=== PATIENT | male | born 1960 | race African-American/Black ===

== ENCOUNTER 2021-06-02 11:03 | Inpatient (IN) | payer MEDICAID ==
[~2021-06-02] VITALS: Ht 205.7 cm; Wt 169.6 kg
[~2021-06-02 11:03] MED LIST: DOCU-138 MT; FAMO-135 PO; HYDR-4001 MT
[2021-06-02] MEDS ORDERED: HYDROCODONE/ACETAMINOPHEN 10/325MG TABLET PO ONE (11:45)
[2021-06-02 12:27] LABS: BASOPHILS % 0.6 % (0.0-2.0); EOSINOPHILS % 4.7 % (0.0-5.0); HEMATOCRIT. 38.7 % (42.0-52.0); HEMOGLOBIN. 13.2 g/dL (14.0-18.0); LYMPHOCYTES % 16.9 % (20.0-50.0); MEAN PLATELET VOLUME 7.8 fl (7.4-10.4); MONOCYTES % 9.6 % (2.0-8.0); NEUTROPHILS % 68.2 % (40.0-76.0); PLATELET 336 x1000/uL (130-400); RED BLOOD CELL COUNT 4.25 mill/uL (4.7-6.1); RED CELL DISTRIBUTION WIDTH 14.7 % (11.6-14.6)
[2021-06-02 12:33] LABS: CHLORIDE 110 mEq/L (98-107)
[2021-06-02] MEDS ORDERED: ONDANSETRON HCL 4MG/2ML INJ IV ONE (15:00)
[2021-06-02] MEDS ORDERED: MORPHINE SULFATE 4 MG/ML CPJ (NOT FOR IM USE) IV ONE (15:00)
[2021-06-02] MEDS ORDERED: MAGNESIUM/ALUMINUM HYDROXIDE/SIMETHICONE 30ML UDC PO PRN (16:00)
[2021-06-02] MEDS ORDERED: ONDANSETRON HCL 4MG/2ML INJ IV PRN (16:00)
[2021-06-02] MEDS ORDERED: NA PHOS,M-B/NA PHOS,DI-BA ENEMA 118ML PR PRN (16:00)
[2021-06-02] MEDS ORDERED: HYDROCODONE/ACETAMINOPHEN 5/325MG TABLET PO PRN (16:00)
[2021-06-02] MEDS ORDERED: GUAIFENESIN 200MG/10ML SUGAR FREE UDC PO PRN (16:00)
[2021-06-02] MEDS ORDERED: CLONIDINE 0.1MG TABLET PO PRN (16:00)
[2021-06-02] MEDS ORDERED: ACETAMINOPHEN 325MG TABLET PO PRN (16:00)
[2021-06-02] MEDS ORDERED: HYDRALAZINE 20MG/ML VIAL IV PRN (16:00)
[2021-06-02] MEDS ORDERED: IPRATROPIUM/ALBUTEROL 0.5-3(2.5)MG/3ML NEB NEB PRN (16:00)
[2021-06-02] MEDS ORDERED: ACETAMINOPHEN 650MG SUPP PR PRN (16:00)
[2021-06-02] MEDS ORDERED: DIPHENHYDRAMINE 50MG/ML VIAL IV PRN (16:00)
[2021-06-02] MEDS ORDERED: DOCUSATE SODIUM 100MG CAPSULE PO PRN (16:00)
[2021-06-02] MEDS ORDERED: LORAZEPAM 0.5MG TABLET PO PRN (16:00)
[2021-06-02] MEDS ORDERED: NALOXONE HCL 0.4MG/ML VIAL IV PRN (16:15)
[2021-06-02] MEDS: DEXT 5%/0.45% NACL 1000ML 1,000 ML IV SCH (16:23)
[2021-06-02] MEDS: PANTOPRAZOLE SODIUM 40 MG/VIAL IV SCH (17:00)
[2021-06-02] MEDS ORDERED: BISACODYL 5MG TABLET PO NR (18:30)
[2021-06-02 19:42] LABS: HEMATOCRIT 38.2 % (42.0-52.0); HEMOGLOBIN 12.9 g/dL (14.0-18.0)
[2021-06-02] MEDS: METOCLOPRAMIDE HCL 10MG/2ML VIAL IV SCH ×2 (19:53→23:55)
[2021-06-02] MEDS: MORPHINE SULFATE 2 MG/ML CPJ (NOT FOR IM USE) IV PRN ×2 (20:09→23:56)
[2021-06-02 20:47] VITALS: BP 140/90
[2021-06-02 21:40] VITALS: BP 140/90
[2021-06-02] MEDS ORDERED: OXYC-105 MT (22:16)
[2021-06-02] MEDS ORDERED: METH500T6 PO (22:17)
[2021-06-02] MEDS ORDERED: IBUP-2029 PO (22:17)
[2021-06-02] MEDS: SORBITOL 70% SOLN 30ML PO SCH (23:56)
[2021-06-03] VITALS: BP 133/81
[2021-06-03 00:16] LABS: CREATINE KINASE 149 IU/L (39-308)
[2021-06-03 00:17] LABS: CREATINE KINASE MB FRACTION 3.7 ng/mL (0.5-3.6)
[2021-06-03 00:19] LABS: HEMATOCRIT 35.3 % (42.0-52.0); HEMOGLOBIN 11.9 g/dL (14.0-18.0)
[2021-06-03 04:00] VITALS: BP 122/68
[2021-06-03] MEDS: DEXT 5%/0.45% NACL 1000ML 1,000 ML IV SCH ×3 (04:48→21:45)
[2021-06-03] MEDS: SORBITOL 70% SOLN 30ML PO SCH ×4 (06:00→17:35)
[2021-06-03] MEDS: METOCLOPRAMIDE HCL 10MG/2ML VIAL IV SCH ×3 (06:09→17:35)
[2021-06-03 06:33] LABS: BASOPHILS % 0.3 % (0.0-2.0); EOSINOPHILS % 4.7 % (0.0-5.0); HEMATOCRIT. 33.4 % (42.0-52.0); HEMOGLOBIN. 11.3 g/dL (14.0-18.0); LYMPHOCYTES % 26.3 % (20.0-50.0); MEAN CORPUSCULAR HEMOGLOBIN 31.2 pg (28.0-32.0); MEAN CORPUSCULAR VOLUME 91.7 fL (80.0-94.0); MEAN PLATELET VOLUME 7.8 fl (7.4-10.4); MONOCYTES % 11.6 % (2.0-8.0); NEUTROPHILS % 57.1 % (40.0-76.0); PLATELET 290 x1000/uL (130-400); RED BLOOD CELL COUNT 3.64 mill/uL (4.7-6.1); RED CELL DISTRIBUTION WIDTH 14.6 % (11.6-14.6)
[2021-06-03 06:40] LABS: CHLORIDE 107 mEq/L (98-107)
[2021-06-03 06:53] LABS: PHOSPHORUS 4.4 mg/dL (2.5-4.9)
[2021-06-03 06:54] LABS: LDL CHOLESTEROL 60 mg/dL (5-100)
[2021-06-03 06:55] LABS: CREATINE KINASE 125 IU/L (39-308); CREATINE KINASE MB FRACTION 2.7 ng/mL (0.5-3.6)
[2021-06-03 06:56] LABS: T4 FREE 1.02 ng/dL (0.76-1.46)
[2021-06-03 06:57] LABS: HDL CHOLESTEROL 63 mg/dL (40-59)
[2021-06-03 08:00] VITALS: BP 124/79
[2021-06-03] MEDS: MORPHINE SULFATE 2 MG/ML CPJ (NOT FOR IM USE) IV PRN ×2 (08:42→17:36)
[2021-06-03 08:55] LABS: HEMATOCRIT 34.9 % (42.0-52.0); HEMOGLOBIN 11.9 g/dL (14.0-18.0)
[2021-06-03] MEDS: PANTOPRAZOLE SODIUM 40 MG/VIAL IV SCH ×2 (09:37→17:36)
[2021-06-03] MEDS ORDERED: POTASSIUM CHLORIDE 20MEQ TABLET SR PO NR (11:15)
[2021-06-03 12:00] VITALS: BP 141/87
[2021-06-03 16:00] VITALS: BP 155/96
[2021-06-03 16:41] LABS: HEMATOCRIT 37.3 % (42.0-52.0); HEMOGLOBIN 12.4 g/dL (14.0-18.0)
[2021-06-03 16:49] LABS: PROTHROMBIN TIME 11.1 sec (9.6-11.0)
[2021-06-03] MEDS ORDERED: POLYETHYLENE GLYCOL-ELECTROLYTE 4000ML PO NR (17:30)
[2021-06-03 20:00] VITALS: BP 117/67
[2021-06-03 23:12] LABS: HEMATOCRIT 34.9 % (42.0-52.0); HEMOGLOBIN 11.7 g/dL (14.0-18.0)
[2021-06-04] VITALS (7 sets, daily range): BP systolic 128–173; BP diastolic 72–101
[2021-06-04] MEDS: METOCLOPRAMIDE HCL 10MG/2ML VIAL IV SCH ×5 (00:04→23:19)
[2021-06-04] MEDS: SORBITOL 70% SOLN 30ML PO SCH ×5 (00:05→23:19)
[2021-06-04] MEDS: PANTOPRAZOLE SODIUM 40 MG/VIAL IV SCH ×2 (09:50→18:37)
[2021-06-04] MEDS: MORPHINE SULFATE 2 MG/ML CPJ (NOT FOR IM USE) IV PRN ×2 (12:59→21:29)
[2021-06-04 16:25] LABS: BASOPHILS % 0.5 % (0.0-2.0); EOSINOPHILS % 5.4 % (0.0-5.0); HEMATOCRIT. 36.5 % (42.0-52.0); HEMOGLOBIN. 12.3 g/dL (14.0-18.0); LYMPHOCYTES % 22.9 % (20.0-50.0); MEAN CORPUSCULAR HEMOGLOBIN 31.1 pg (28.0-32.0); MEAN CORPUSCULAR VOLUME 92.1 fL (80.0-94.0); MONOCYTES % 9.8 % (2.0-8.0); NEUTROPHILS % 61.4 % (40.0-76.0); PLATELET 330 x1000/uL (130-400); RED BLOOD CELL COUNT 3.96 mill/uL (4.7-6.1); RED CELL DISTRIBUTION WIDTH 14.6 % (11.6-14.6)
[2021-06-04 16:57] LABS: CHLORIDE 110 mEq/L (98-107)
[2021-06-04 17:03] LABS: PHOSPHORUS 2.9 mg/dL (2.5-4.9)
[2021-06-04] MEDS: DEXT 5%/0.45% NACL 1000ML 1,000 ML IV SCH (21:44)
[2021-06-05] VITALS: BP 177/103
[2021-06-05 04:00] VITALS: BP 156/93
[2021-06-05] MEDS: SORBITOL 70% SOLN 30ML PO SCH (06:16)
[2021-06-05] MEDS: METOCLOPRAMIDE HCL 10MG/2ML VIAL IV SCH (06:16)
[2021-06-05] MEDS: DEXT 5%/0.45% NACL 1000ML 1,000 ML IV SCH ×2 (06:17→14:00)
[2021-06-05 08:00] VITALS: BP 159/85
[2021-06-05] MEDS: PANTOPRAZOLE SODIUM 40 MG/VIAL IV SCH ×2 (08:49→17:00)
[2021-06-05] MEDS: MORPHINE SULFATE 2 MG/ML CPJ (NOT FOR IM USE) IV PRN ×3 (08:50→22:18)
[2021-06-05 09:57] LABS: BASOPHILS % 0.4 % (0.0-2.0); EOSINOPHILS % 7.3 % (0.0-5.0); HEMATOCRIT. 36.3 % (42.0-52.0); HEMOGLOBIN. 12.4 g/dL (14.0-18.0); LYMPHOCYTES % 25.2 % (20.0-50.0); MEAN CORPUSCULAR HEMOGLOBIN 30.9 pg (28.0-32.0); MEAN CORPUSCULAR VOLUME 90.8 fL (80.0-94.0); MEAN PLATELET VOLUME 7.8 fl (7.4-10.4); MONOCYTES % 9.9 % (2.0-8.0); NEUTROPHILS % 57.2 % (40.0-76.0); PLATELET 330 x1000/uL (130-400); RED CELL DISTRIBUTION WIDTH 14.5 % (11.6-14.6)
[2021-06-05 10:07] LABS: INR 1.1; PROTHROMBIN TIME 11.3 sec (9.6-11.0)
[2021-06-05 10:13] LABS: CHLORIDE 106 mEq/L (98-107)
[2021-06-05 10:19] LABS: PHOSPHORUS 3.3 mg/dL (2.5-4.9)
[2021-06-05 12:00] VITALS: BP 152/87
[2021-06-05] MEDS ORDERED: POTASSIUM CHLORIDE INJ 40 MEQ in DEXT 5% WATER 250 ML IV ONE (12:00)
[2021-06-05] MEDS ORDERED: KCL 20MEQ/100ML PREMIX 100 ML IV NR (12:15)
[2021-06-05] MEDS ORDERED: FENTANYL CITRATE/PF 50MCG/ML 2ML VIAL ONE ×2 (12:31→12:53)
[2021-06-05] MEDS ORDERED: MIDAZOLAM HCL 5 MG/5 ML VIAL ONE ×2 (12:31→13:36)
[2021-06-05] MEDS ORDERED: FENTANYL CITRATE/PF 50MCG/ML 2ML VIAL IV PRN (12:31)
[2021-06-05] MEDS ORDERED: MIDAZOLAM HCL 5 MG/5 ML VIAL IV PRN (12:31)
[2021-06-05] MEDS ORDERED: DIAZEPAM 5 MG/ML 2ML CPJ ONE ×3 (12:32→13:19)
[2021-06-05] MEDS ORDERED: DIAZEPAM 5 MG/ML 2ML CPJ IV PRN (12:32)
[2021-06-05 16:00] VITALS: BP 150/86
[2021-06-05] MEDS ORDERED: POTASSIUM CHLORIDE 20MEQ TABLET SR PO NR (17:00)
[2021-06-05 20:00] VITALS: BP 145/86
[2021-06-06] VITALS: BP 162/99
[2021-06-06 06:23] LABS: BASOPHILS % 0.6 % (0.0-2.0); EOSINOPHILS % 6.5 % (0.0-5.0); HEMATOCRIT. 37.2 % (42.0-52.0); HEMOGLOBIN. 12.4 g/dL (14.0-18.0); MEAN CORPUSCULAR HEMOGLOBIN 30.6 pg (28.0-32.0); MEAN CORPUSCULAR VOLUME 91.5 fL (80.0-94.0); MEAN PLATELET VOLUME 7.9 fl (7.4-10.4); MONOCYTES % 9.1 % (2.0-8.0); NEUTROPHILS % 57.8 % (40.0-76.0); PLATELET 328 x1000/uL (130-400); RED BLOOD CELL COUNT 4.07 mill/uL (4.7-6.1); RED CELL DISTRIBUTION WIDTH 14.5 % (11.6-14.6)
[2021-06-06 06:57] LABS: CHLORIDE 106 mEq/L (98-107)
[2021-06-06 08:00] VITALS: BP 151/92
[2021-06-06] MEDS ORDERED: POTASSIUM CHLORIDE 20MEQ TABLET SR PO SCH (08:45)
[2021-06-06] MEDS: PANTOPRAZOLE SODIUM 40 MG/VIAL IV SCH ×3 (08:53→17:27)
[2021-06-06] MEDS: MORPHINE SULFATE 2 MG/ML CPJ (NOT FOR IM USE) IV PRN ×2 (08:54→09:32)
[2021-06-06] MEDS: DEXT 5%/0.45% NACL 1000ML 1,000 ML IV SCH ×5 (10:00→22:27)
[2021-06-06 12:00] VITALS: BP 130/79
[2021-06-06 16:00] VITALS: BP 137/91
[2021-06-06] MEDS: HYDROCODONE/ACETAMINOPHEN 10/325MG TABLET PO PRN (17:30)
[2021-06-06 20:00] VITALS: BP 147/91
[2021-06-07] MEDS ORDERED: POTASSIUM CHLORIDE 20MEQ TABLET SR PO NR (07:30)
[2021-06-07 08:00] VITALS: BP 141/76
[2021-06-07] MEDS: HYDROCODONE/ACETAMINOPHEN 10/325MG TABLET PO PRN (08:56)
[2021-06-07] MEDS: PANTOPRAZOLE SODIUM 40 MG/VIAL IV SCH (09:00)
[2021-06-07 12:00] VITALS: BP 141/76
[2021-06-07] MEDS ORDERED: [UNRECOGNIZED DRUG - OTHER] RC (14:04)
[2021-06-07] MEDS ORDERED: HYDR-4009 MT (14:04)
[2021-06-07 14:58] VITALS: BP 131/77
[2021-06-07 16:00] VITALS: BP 160/100
== END 2021-06-07 16:05 | disposition home or self-care (01) | DRG 240 ==
LOC: ER 11:03 → 8WST 14:56 → EDBEDREQSVC 15:35 → EDBEDREQ 15:35 → ENRESERV 18:03
PROVIDERS: ADMIT Internal Medicine; ATTEND Internal Medicine
PROC: 0DBN8ZX Excision of Sigmoid Colon, Via Natural or Artificial Opening Endoscopic, Diagnostic (ICD-10-PCS; principal; 2021-06-06)
PROC: 0DBM8ZZ Excision of Descending Colon, Via Natural or Artificial Opening Endoscopic (ICD-10-PCS; 2021-06-06)
PROC: 0DBL8ZZ Excision of Transverse Colon, Via Natural or Artificial Opening Endoscopic (ICD-10-PCS; 2021-06-06)
DX: C19 Malignant neoplasm of rectosigmoid junction (principal); G90.8 Other disorders of autonomic nervous system; E86.0 Dehydration; E87.8 Other disorders of electrolyte and fluid balance, not elsewhere classified; M48.56XA Collapsed vertebra, not elsewhere classified, lumbar region, initial encounter for fracture; D64.9 Anemia, unspecified; E66.9 Obesity, unspecified; R73.9 Hyperglycemia, unspecified; K76.0 Fatty (change of) liver, not elsewhere classified; D12.4 Benign neoplasm of descending colon; G89.29 Other chronic pain; D12.3 Benign neoplasm of transverse colon; K57.30 Diverticulosis of large intestine without perforation or abscess without bleeding; K63.89 Other specified diseases of intestine; Z20.822 Contact with and (suspected) exposure to COVID-19; E87.6 Hypokalemia; N20.0 Calculus of kidney; M47.816 Spondylosis without myelopathy or radiculopathy, lumbar region; Z79.891 Long term (current) use of opiate analgesic; Z68.41 Body mass index [BMI] 40.0-44.9, adult
CPT/HCPCS: 36415; 71045; 72131; 80048; 80053; 80061; 82270; 82550; 82553; 83735; 84100; 84439; 84443; 84484; 85014; 85018; 85025; 86850; 86900; 87426; 88305; 93005; 97161; 99152; 99285; C1893; C9113; J0360; J2250; J2270; J2405; J2765; J3010; J3480; J7042; G0500

== ENCOUNTER 2024-01-20 17:59 | Emergency (ER) | payer MEDICAID ==
[~2024-01-20] VITALS: Ht 205.7 cm; Wt 160.0 kg
[~2024-01-20 17:59] MED LIST changes: +HYDR-4009 MT; +METH-773 PO; +OXYC-105 MT; +[UNRECOGNIZED DRUG - OTHER] RC
[2024-01-20 18:04] VITALS: TEMP 98.3; O2SAT 91
[2024-01-20 19:29] LABS: HEMATOCRIT. 36.6 % (42.0-52.0); HEMOGLOBIN. 12.3 g/dL (14.0-18.0); MEAN CORPUSCULAR HEMOGLOBIN 30.8 pg (28.0-32.0); MEAN CORPUSCULAR HGB CONC 33.5 g/dL (31.0-37.0); MEAN CORPUSCULAR VOLUME 92.1 fL (80.0-94.0); MEAN PLATELET VOLUME 7.2 fl (7.4-10.4); PLATELET 403 x1000/uL (130-400); RED BLOOD CELL COUNT 3.98 mill/uL (4.7-6.1); RED CELL DISTRIBUTION WIDTH 16.8 % (11.6-14.6); WHITE BLOOD COUNT 9.3 x1000/uL (4.5-11.0)
[2024-01-20 19:31] LABS: DIFFERENTIAL COMMENT 1
[2024-01-20 19:43] LABS: ALANINE AMINOTRANSFERASE < 7 IU/L (10-49); ASPARTATE AMINOTRANSFERASE 13 IU/L (<34); BILIRUBIN TOTAL 0.5 mg/dL (0.1-1.0); CALCIUM 8.9 mg/dL (8.7-10.4); CARBON DIOXIDE 23 mEq/L (21-32); CHLORIDE 104 mEq/L (98-107); CREATININE 1.2 mg/dL (0.6-1.3); GLUCOSE 180 mg/dL (70-105); POTASSIUM 3.7 mEq/L (3.5-5.1); PROTEIN TOTAL 7.9 g/dL (6.0-8.3); SODIUM 134 mEq/L (136-145); UREA NITROGEN BLOOD 14 mg/dL (9-23)
[2024-01-20 19:54] LABS: ETHANOL BLOOD < 10 mg/dL (<10)
[2024-01-20 20:05] LABS: ANISOCYTOSIS 1+; PLATELET ESTIMATE SLIGHTLY INCREASED
[2024-01-20 20:20] VITALS: BP 119/70; PULSE 74; RESP 13
== END 2024-01-20 21:30 | disposition home or self-care (01) ==
LOC: ER 17:59
DX: F12.10 Cannabis abuse, uncomplicated (principal); Z79.899 Other long term (current) drug therapy
CPT/HCPCS: 36415; 80053; 80320; 85025; 99283; G0480

== ENCOUNTER 2025-03-14 10:45 | Inpatient (IN) | payer MEDICAID, OTHER ==
[~2025-03-14] VITALS: Ht 208.3 cm; Wt 144.9 kg
[~2025-03-14 10:45] MED LIST changes: +FURO80TA87 MT; +POTA-205 MT
[2025-03-14] MEDS: MORPHINE SULFATE 4 MG/ML INJ (FOR IV/IM USE) IV ONE (11:15)
[2025-03-14 11:32] LABS: BASOPHILS % 1.2 % (0.0-2.0); EOSINOPHILS % 4.4 % (0.0-5.0); HEMATOCRIT. 26.8 % (42.0-52.0); HEMOGLOBIN. 8.4 g/dL (14.0-18.0); LYMPHOCYTES % 7.4 % (20.0-50.0); MEAN CORPUSCULAR HEMOGLOBIN 27.1 pg (28.0-32.0); MEAN CORPUSCULAR HGB CONC 31.3 g/dL (31.0-37.0); MEAN CORPUSCULAR VOLUME 86.6 fL (80.0-94.0); MEAN PLATELET VOLUME 7.1 fl (7.4-10.4); MONOCYTES % 6.1 % (2.0-8.0); NEUTROPHILS % 80.9 % (40.0-76.0); PLATELET 418 x1000/uL (130-400); RED BLOOD CELL COUNT 3.09 mill/uL (4.7-6.1); RED CELL DISTRIBUTION WIDTH 20.1 % (11.6-14.6); WHITE BLOOD COUNT 4.4 x1000/uL (4.5-11.0)
[2025-03-14 11:34] LABS: CHLORIDE 108 mEq/L (98-107); SODIUM 138 mEq/L (136-145)
[2025-03-14 11:35] LABS: CARBON DIOXIDE 24 mEq/L (21-32)
[2025-03-14 11:36] LABS: CALCIUM 8.5 mg/dL (8.7-10.4)
[2025-03-14 11:40] LABS: GLUCOSE 123 mg/dL (70-105); UREA NITROGEN BLOOD 30 mg/dL (9-23)
[2025-03-14 11:43] LABS: TROPONIN I HIGH SENSITIVITY 8 ng/L (3.0-53)
[2025-03-14 12:30] LABS: CREATININE 1.6 mg/dL (0.6-1.3)
[2025-03-14 13:10] LABS: TROPONIN I HIGH SENSITIVITY 6 ng/L (3.0-53)
[2025-03-14] MEDS ORDERED: ONDANSETRON HCL 4MG/2ML INJ IV PRN (13:30)
[2025-03-14] MEDS ORDERED: NITROGLYCERIN 0.4MG TABLET SL SL PRN (13:30)
[2025-03-14] MEDS ORDERED: MAGNESIUM/ALUMINUM HYDROXIDE/SIMETHICONE 30ML UDC PO PRN (13:30)
[2025-03-14] MEDS ORDERED: ACETAMINOPHEN 325MG TABLET PO PRN ×2 (13:30)
[2025-03-14] MEDS ORDERED: IPRATROPIUM/ALBUTEROL 0.5-3(2.5)MG/3ML NEB HHN PRN (13:30)
[2025-03-14] MEDS ORDERED: NALOXONE HCL 0.4MG/ML VIAL IV PRN (13:45)
[2025-03-14] MEDS: ASPIRIN 325MG EC TABLET PO SCH (15:27)
[2025-03-14] MEDS: HYDROCODONE/ACETAMINOPHEN 5/325MG TABLET PO PRN (15:29)
[2025-03-14] MEDS: HYDROMORPHONE HCL/PF 2MG/ML INJ IV PRN (16:33)
[2025-03-14 17:00] VITALS: BP_SYST 145; BP_SYST 157; BP_DIAS 87; BP_DIAS 94
[2025-03-14] MEDS: FUROSEMIDE 40MG/4ML VIAL IV SCH (17:24)
[2025-03-14 17:50] VITALS: BP 158/90; PULSE 93; RESP 20; TEMP 36.5
[2025-03-14] MEDS: CLONIDINE 0.1MG TABLET PO PRN (18:38)
[2025-03-14 19:15] LABS: CLARITY URINE CLEAR (CLEAR); COLOR URINE YELLOW (YELLOW); GLUCOSE URINE NEGATIVE (NEGATIVE); KETONES URINE NEGATIVE (NEGATIVE); LEUKOCYTE ESTERASE URINE NEGATIVE (NEGATIVE); NITRITE URINE NEGATIVE (NEGATIVE); OCCULT BLOOD URINE 3+ (NEGATIVE); PH URINE 5.5 (4.5-8.0); PROTEIN URINE 1+ (NEGATIVE); SPECIFIC GRAVITY URINE 1.036 (1.005-1.030)
[2025-03-14 19:25] LABS: *AMPHETAMINES SCREEN URINE NEGATIVE (NEGATIVE); *BARBITURATES SCREEN URINE NEGATIVE (NEGATIVE); *BENZODIAZEPINES SCREEN URINE NEGATIVE (NEGATIVE)
[2025-03-14 19:26] LABS: *COCAINE SCREEN URINE NEGATIVE (NEGATIVE); CANNABINOID URINE SCREEN NEGATIVE (NEGATIVE); ECSTASY MDMA SCREEN URINE NEGATIVE (NEGATIVE); METHADONE URINE SCREEN NEGATIVE (NEGATIVE); OPIATES URINE SCREEN PRESUMPTIVE POSITIVE (NEGATIVE); PHENCYCLIDINE URINE SCREEN NEGATIVE (NEGATIVE)
[2025-03-14 19:41] LABS: BACTERIA URINE 1+; RBC URINE 25-50 /hpf (0-2); SQUAMOUS EPITHELIAL CELL URINE RARE /lpf (RARE/1+); WBC URINE 0-2 /hpf (0-2)
[2025-03-14 20:00] VITALS: BP_SYST 144; BP_SYST 160; BP_DIAS 93; BP_DIAS 96; PULSE 113; RESP 19; TEMP 37.2; O2SAT 100
[2025-03-14] MEDS: ATORVASTATIN CALCIUM 40MG TABLET PO SCH (20:40)
[2025-03-14] MEDS: HYDRALAZINE HCL 10MG TABLET PO SCH (20:41)
[2025-03-14] MEDS: METOPROLOL TARTRATE 25MG TABLET PO SCH (20:44)
[2025-03-14 21:08] LABS: CREATINE KINASE MB FRACTION 1.1 ng/mL (0.5-3.6)
[2025-03-14 21:18] LABS: IRON 25 ug/dL (65-175)
[2025-03-14 21:20] LABS: PHOSPHORUS 4.3 mg/dL (2.5-4.9)
[2025-03-14 21:21] LABS: TOTAL IRON BINDING CAPACITY 251 ug/dl (250-425)
[2025-03-14 21:23] LABS: FERRITIN 29 ng/mL (22-322)
[2025-03-14 21:25] LABS: FOLIC ACID (FOLATE) SERUM > 20.00 ng/mL (>5.38); VITAMIN B12 SERUM 290 pg/mL (211-911)
[2025-03-14] MEDS ORDERED: IOHEXOL-350 100 ML BOTTLE ONE (23:40)
[2025-03-15] VITALS: BP 166/98; PULSE 93; RESP 19; TEMP 37.1; O2SAT 95
[2025-03-15 04:00] VITALS: BP 135/77; PULSE 97; RESP 18; TEMP 37.4; O2SAT 95
[2025-03-15 08:00] VITALS: BP_SYST 141; BP_SYST 145; BP_SYST 159; BP_DIAS 85; BP_DIAS 88; BP_DIAS 91; PULSE 107; TEMP 36.7
[2025-03-15] MEDS: ASPIRIN 81MG EC TABLET PO SCH (08:46)
[2025-03-15] MEDS: FERROUS SULFATE 325MG TABLET PO SCH (08:46)
[2025-03-15] MEDS: FAMOTIDINE 20MG TABLET PO SCH (08:47)
[2025-03-15 10:09] LABS: BASOPHILS % 0.4 % (0.0-2.0); EOSINOPHILS % 2.6 % (0.0-5.0); HEMATOCRIT. 29.1 % (42.0-52.0); HEMOGLOBIN. 9.5 g/dL (14.0-18.0); LYMPHOCYTES % 6.8 % (20.0-50.0); MEAN CORPUSCULAR HEMOGLOBIN 26.6 pg (28.0-32.0); MEAN CORPUSCULAR HGB CONC 32.7 g/dL (31.0-37.0); MEAN CORPUSCULAR VOLUME 81.3 fL (80.0-94.0); MONOCYTES % 8.3 % (2.0-8.0); NEUTROPHILS % 81.9 % (40.0-76.0); PLATELET 534 x1000/uL (130-400); RED BLOOD CELL COUNT 3.58 mill/uL (4.7-6.1); RED CELL DISTRIBUTION WIDTH 19.5 % (11.6-14.6); WHITE BLOOD COUNT 6.3 x1000/uL (4.5-11.0)
[2025-03-15 10:23] LABS: CHLORIDE 103 mEq/L (98-107); POTASSIUM 3.2 mEq/L (3.5-5.1); SODIUM 136 mEq/L (136-145)
[2025-03-15 10:24] LABS: CALCIUM 8.9 mg/dL (8.7-10.4); CARBON DIOXIDE 24 mEq/L (21-32)
[2025-03-15 10:26] LABS: DIFFERENTIAL COMMENT 1
[2025-03-15 10:28] LABS: CREATINE KINASE MB FRACTION 0.8 ng/mL (0.5-3.6)
[2025-03-15 10:29] LABS: CREATININE 1.1 mg/dL (0.6-1.3); GLUCOSE 201 mg/dL (70-105); TRIGLYCERIDE 69 mg/dL (0-150); TROPONIN I HIGH SENSITIVITY 14 ng/L (3.0-53); UREA NITROGEN BLOOD 20 mg/dL (9-23)
[2025-03-15 10:30] LABS: LDL CHOLESTEROL 56 mg/dL (5-100)
[2025-03-15 10:31] LABS: CHOLESTEROL 107 mg/dL (<200); CREATINE KINASE 48 IU/L (46-171); HDL CHOLESTEROL 34 mg/dL (>55)
[2025-03-15 10:32] LABS: T4 FREE 1.02 ng/dL (0.89-1.76); THYROID STIMULATING HORMONE 5.33 uIU/mL (0.55-4.78)
[2025-03-15 12:00] VITALS: BP 150/97; PULSE 84; RESP 18; TEMP 37.1
[2025-03-15 16:00] VITALS: BP 164/96; PULSE 109; RESP 18; TEMP 36.5
[2025-03-15 20:00] VITALS: BP 142/84; PULSE 114; RESP 19; TEMP 36.7
[2025-03-16] VITALS: BP 107/65; PULSE 102; RESP 19; TEMP 37.7
[2025-03-16] MEDS ORDERED: MORPHINE SULFATE 2 MG/ML INJ (NOT FOR IM USE) IV PRN (01:00)
[2025-03-16] MEDS: GABAPENTIN 100MG CAPSULE PO SCH (01:00)
[2025-03-16 04:00] VITALS: BP 146/95; PULSE 103; RESP 19; TEMP 36.4; O2SAT 95
[2025-03-16] MEDS: HYDROMORPHONE HCL/PF 2MG/ML INJ IV PRN (05:08)
[2025-03-16 08:00] VITALS: BP_SYST 119; BP_SYST 155; BP_DIAS 52; BP_DIAS 98; PULSE 106; PULSE 60; RESP 15; RESP 24; TEMP 36.6; O2SAT 94
[2025-03-16 12:00] VITALS: BP 155/103; PULSE 99; RESP 15; TEMP 36.5; O2SAT 95
[2025-03-16 16:00] VITALS: BP_SYST 131; BP_DIAS 46; BP_DIAS 78; PULSE 116; PULSE 80; RESP 14; RESP 24; TEMP 36.3; TEMP 37.9; O2SAT 93; O2SAT 94
[2025-03-16 20:00] VITALS: BP 139/96; PULSE 105; RESP 19; TEMP 36.7; O2SAT 95
[2025-03-17] VITALS: BP_SYST 135; BP_SYST 139; BP_SYST 141; BP_DIAS 85; BP_DIAS 87; BP_DIAS 93; PULSE 102; RESP 18; TEMP 37.2; O2SAT 97
[2025-03-17 04:00] VITALS: BP 118/76; PULSE 97; RESP 19; TEMP 36.7; O2SAT 97
[2025-03-17 07:50] LABS: CALCIUM 8.8 mg/dL (8.7-10.4); CARBON DIOXIDE 26 mEq/L (21-32); CHLORIDE 104 mEq/L (98-107); POTASSIUM 3.3 mEq/L (3.5-5.1); SODIUM 137 mEq/L (136-145)
[2025-03-17 07:56] LABS: CREATININE 0.9 mg/dL (0.6-1.3); GLUCOSE 120 mg/dL (70-105); UREA NITROGEN BLOOD 13 mg/dL (9-23)
[2025-03-17 08:00] VITALS: BP 119/80; PULSE 94; RESP 17; TEMP 36.5; O2SAT 95
[2025-03-17 12:00] VITALS: BP 123/83; PULSE 99; RESP 17; TEMP 36.5; O2SAT 98
[2025-03-17 16:00] VITALS: BP 133/88; PULSE 100; RESP 16; TEMP 35.1; O2SAT 96
[2025-03-17 20:00] VITALS: BP 153/92; PULSE 99; RESP 18; TEMP 36.2; O2SAT 99
[2025-03-17] MEDS: OXYCODONE HCL/ACETAMINOPHEN 5/325MG TABLET PO PRN (22:10)
[2025-03-18] VITALS: BP_SYST 133; BP_SYST 143; BP_SYST 151; BP_DIAS 85; BP_DIAS 87; BP_DIAS 92; PULSE 111; RESP 20; TEMP 36.2; O2SAT 97
[2025-03-18 04:09] VITALS: BP 143/76; PULSE 95; RESP 19; TEMP 36.3; O2SAT 98
[2025-03-18 06:56] LABS: HEMATOCRIT. 27.7 % (42.0-52.0); MEAN CORPUSCULAR HEMOGLOBIN 26.3 pg (28.0-32.0); MEAN CORPUSCULAR HGB CONC 32.5 g/dL (31.0-37.0); MEAN CORPUSCULAR VOLUME 80.8 fL (80.0-94.0); MEAN PLATELET VOLUME 7.4 fl (7.4-10.4); PLATELET 427 x1000/uL (130-400); RED BLOOD CELL COUNT 3.44 mill/uL (4.7-6.1); RED CELL DISTRIBUTION WIDTH 19.1 % (11.6-14.6); WHITE BLOOD COUNT 5.5 x1000/uL (4.5-11.0)
[2025-03-18 07:07] LABS: DIFFERENTIAL COMMENT 1
[2025-03-18 07:08] LABS: CARBON DIOXIDE 28 mEq/L (21-32); CHLORIDE 105 mEq/L (98-107); POTASSIUM 3.3 mEq/L (3.5-5.1); SODIUM 140 mEq/L (136-145); TROPONIN I HIGH SENSITIVITY 13 ng/L (3.0-53)
[2025-03-18 07:09] LABS: CALCIUM 8.9 mg/dL (8.7-10.4)
[2025-03-18 07:12] LABS: THYROID STIMULATING HORMONE 6.28 uIU/mL (0.55-4.78)
[2025-03-18 07:13] LABS: CREATININE 0.9 mg/dL (0.6-1.3)
[2025-03-18 07:14] LABS: GLUCOSE 124 mg/dL (70-105); UREA NITROGEN BLOOD 12 mg/dL (9-23)
[2025-03-18 08:00] VITALS: PULSE 91; RESP 18; TEMP 36; O2SAT 95
[2025-03-18] MEDS: POTASSIUM CHLORIDE 20MEQ TABLET SR PO SCH (09:39)
[2025-03-18] MEDS: LEVOTHYROXINE SODIUM 50MCG TABLET PO SCH (09:39)
[2025-03-18] MEDS: MAGNESIUM OXIDE 400MG TABLET PO SCH (09:41)
[2025-03-18 09:43] LABS: ANISOCYTOSIS 1+; HYPOCHROMASIA 1+; PLATELET ESTIMATE SLIGHTLY INCREASED
[2025-03-18 20:00] VITALS: BP 148/82; PULSE 102; RESP 18; TEMP 35.8; O2SAT 98
[2025-03-19] VITALS (7 sets, daily range): BP systolic 88–143; BP diastolic 55–93; PULSE 82–109; RESP 14–19; TEMP 35.3–36.7; O2SAT 95–100
[2025-03-19 07:28] LABS: BASOPHILS % 0.6 % (0.0-2.0); EOSINOPHILS % 7.1 % (0.0-5.0); HEMATOCRIT. 28.7 % (42.0-52.0); HEMOGLOBIN. 9.3 g/dL (14.0-18.0); LYMPHOCYTES % 12.4 % (20.0-50.0); MEAN CORPUSCULAR HEMOGLOBIN 26.4 pg (28.0-32.0); MEAN CORPUSCULAR HGB CONC 32.6 g/dL (31.0-37.0); MEAN CORPUSCULAR VOLUME 80.9 fL (80.0-94.0); MEAN PLATELET VOLUME 7.2 fl (7.4-10.4); MONOCYTES % 9.4 % (2.0-8.0); NEUTROPHILS % 70.5 % (40.0-76.0); PLATELET 472 x1000/uL (130-400); RED BLOOD CELL COUNT 3.54 mill/uL (4.7-6.1); RED CELL DISTRIBUTION WIDTH 19.5 % (11.6-14.6); WHITE BLOOD COUNT 6.9 x1000/uL (4.5-11.0)
[2025-03-19 07:55] LABS: CARBON DIOXIDE 28 mEq/L (21-32); CHLORIDE 101 mEq/L (98-107); POTASSIUM 3.8 mEq/L (3.5-5.1); SODIUM 137 mEq/L (136-145)
[2025-03-19 08:01] LABS: GLUCOSE 114 mg/dL (70-105); UREA NITROGEN BLOOD 15 mg/dL (9-23)
[2025-03-19] MEDS ORDERED: NALOXONE HCL 0.4MG/ML VIAL IV PRN (10:30)
[2025-03-19] MEDS: OXYCODONE HCL 5MG TABLET PO PRN (12:03)
[2025-03-19] MEDS ORDERED: DEXT 5%/0.45% NACL 1000ML 1,000 ML IV SCH ×2 (16:00→16:15)
[2025-03-19] MEDS: DEXT 5%/0.45% NACL 1000ML 1,000 ML IV SCH (16:33)
[2025-03-20] VITALS: BP_SYST 119; BP_SYST 133; BP_SYST 143; BP_DIAS 66; BP_DIAS 82; BP_DIAS 83; PULSE 117; RESP 19; TEMP 37.4; O2SAT 98
[2025-03-20 04:00] VITALS: BP 117/70; PULSE 97; RESP 18; TEMP 36.9; O2SAT 100
[2025-03-20 06:00] LABS: CHLORIDE 102 mEq/L (98-107); POTASSIUM 3.9 mEq/L (3.5-5.1); SODIUM 137 mEq/L (136-145)
[2025-03-20 06:01] LABS: CALCIUM 9.1 mg/dL (8.7-10.4); CARBON DIOXIDE 28 mEq/L (21-32)
[2025-03-20 06:06] LABS: CREATININE 1.1 mg/dL (0.6-1.3); GLUCOSE 141 mg/dL (70-105); UREA NITROGEN BLOOD 14 mg/dL (9-23)
[2025-03-20 06:07] LABS: TROPONIN I HIGH SENSITIVITY 11 ng/L (3.0-53)
[2025-03-20 06:08] LABS: ALANINE AMINOTRANSFERASE 27 IU/L (10-49); ALBUMIN 3.8 g/dL (3.2-4.8); ASPARTATE AMINOTRANSFERASE 32 IU/L (<34); BILIRUBIN TOTAL 0.6 mg/dL (0.1-1.0); PROTEIN TOTAL 7.4 g/dL (6.0-8.3)
[2025-03-20 06:12] LABS: BASOPHILS % 0.7 % (0.0-2.0); EOSINOPHILS % 6.9 % (0.0-5.0); HEMATOCRIT. 28.6 % (42.0-52.0); HEMOGLOBIN. 9.1 g/dL (14.0-18.0); LYMPHOCYTES % 11.6 % (20.0-50.0); MEAN CORPUSCULAR HEMOGLOBIN 26.1 pg (28.0-32.0); MEAN CORPUSCULAR HGB CONC 31.9 g/dL (31.0-37.0); MEAN CORPUSCULAR VOLUME 81.9 fL (80.0-94.0); MEAN PLATELET VOLUME 7.3 fl (7.4-10.4); MONOCYTES % 8.8 % (2.0-8.0); PLATELET 487 x1000/uL (130-400); RED BLOOD CELL COUNT 3.49 mill/uL (4.7-6.1); WHITE BLOOD COUNT 7.5 x1000/uL (4.5-11.0)
[2025-03-20 08:00] VITALS: BP_SYST 122; BP_SYST 123; BP_SYST 127; BP_DIAS 73; BP_DIAS 83; BP_DIAS 86; PULSE 90; RESP 18; TEMP 36.1; O2SAT 100
[2025-03-20] MEDS: AMLODIPINE 2.5MG TABLET PO SCH (09:14)
[2025-03-20 12:00] VITALS: BP_SYST 117; BP_SYST 127; BP_SYST 136; BP_DIAS 73; BP_DIAS 83; BP_DIAS 92; PULSE 48; RESP 18; TEMP 36.7; O2SAT 98
[2025-03-20 12:55] VITALS: BP 136/92; PULSE 107; TEMP 97.5; O2SAT 98
[2025-03-20 13:12] VITALS: BP 136/92; PULSE 107; RESP 18
== END 2025-03-20 14:45 | disposition home or self-care (01) | DRG 194 ==
LOC: ER 10:45 → 6WST 14:11
PROVIDERS: ADMIT Internal Medicine; ATTEND Internal Medicine
DX: I13.0 Hypertensive heart and chronic kidney disease with heart failure and stage 1 through stage 4 chronic kidney disease, or unspecified chronic kidney disease (principal); J18.9 Pneumonia, unspecified organism; C78.02 Secondary malignant neoplasm of left lung; C78.01 Secondary malignant neoplasm of right lung; N17.9 Acute kidney failure, unspecified; C18.9 Malignant neoplasm of colon, unspecified; G90.89 Other disorders of autonomic nervous system; I20.9 Angina pectoris, unspecified; D64.9 Anemia, unspecified; E87.6 Hypokalemia; E03.9 Hypothyroidism, unspecified; E66.9 Obesity, unspecified; E78.5 Hyperlipidemia, unspecified; E83.42 Hypomagnesemia; G47.33 Obstructive sleep apnea (adult) (pediatric); G62.9 Polyneuropathy, unspecified; I44.0 Atrioventricular block, first degree; I49.1 Atrial premature depolarization; K59.00 Constipation, unspecified; R80.9 Proteinuria, unspecified; R73.9 Hyperglycemia, unspecified; I95.1 Orthostatic hypotension; I50.23 Acute on chronic systolic (congestive) heart failure; M47.26 Other spondylosis with radiculopathy, lumbar region; N18.9 Chronic kidney disease, unspecified; Z79.82 Long term (current) use of aspirin; Z79.899 Other long term (current) drug therapy; Z85.048 Personal history of other malignant neoplasm of rectum, rectosigmoid junction, and anus; Z86.711 Personal history of pulmonary embolism; Z91.81 History of falling; Z68.33 Body mass index [BMI] 33.0-33.9, adult
CPT/HCPCS: 36415; 71045; 71275; 73030; 73060; 80048; 80053; 80061; 80305; 81003; 82270; 82550; 82553; 82607; 82728; 82746; 83036; 83540; 83550; 83735; 83880; 84100; 84439; 84443; 84484; 85025; 85379; 93005; 93306; 93880; 97162; 97166; 97530; 97535; 99285; A4606; J1171; J1940; J2270; Q9967

== ENCOUNTER 2025-03-22 17:56 | Emergency (ER) | payer MEDICAID ==
[~2025-03-22] VITALS: Ht 205.7 cm; Wt 140.0 kg
[2025-03-22 17:58] VITALS: TEMP 37; O2SAT 100
[2025-03-22 19:11] LABS: BASOPHILS % 1.2 % (0.0-2.0); EOSINOPHILS % 6.2 % (0.0-5.0); HEMATOCRIT. 25.4 % (42.0-52.0); HEMOGLOBIN. 8.3 g/dL (14.0-18.0); LYMPHOCYTES % 7.2 % (20.0-50.0); MEAN CORPUSCULAR HEMOGLOBIN 26.8 pg (28.0-32.0); MEAN CORPUSCULAR HGB CONC 32.6 g/dL (31.0-37.0); MEAN CORPUSCULAR VOLUME 82.1 fL (80.0-94.0); MEAN PLATELET VOLUME 7.8 fl (7.4-10.4); MONOCYTES % 6.9 % (2.0-8.0); NEUTROPHILS % 78.5 % (40.0-76.0); PLATELET 451 x1000/uL (130-400); RED BLOOD CELL COUNT 3.09 mill/uL (4.7-6.1); RED CELL DISTRIBUTION WIDTH 18.7 % (11.6-14.6); WHITE BLOOD COUNT 8.5 x1000/uL (4.5-11.0)
[2025-03-22 19:21] LABS: PARTIAL THROMBOPLASTIN TIME 24.5 sec (23.4-31.0); PROTHROMBIN TIME 11.1 sec (9.6-11.0)
[2025-03-22 19:26] LABS: CARBON DIOXIDE 28 mEq/L (21-32); CHLORIDE 103 mEq/L (98-107); SODIUM 139 mEq/L (136-145)
[2025-03-22 19:27] LABS: CALCIUM 8.4 mg/dL (8.7-10.4)
[2025-03-22 19:32] LABS: GLUCOSE 84 mg/dL (70-105); UREA NITROGEN BLOOD 33 mg/dL (9-23)
[2025-03-22 19:34] LABS: TROPONIN I HIGH SENSITIVITY 7 ng/L (3.0-53)
[2025-03-22 19:44] LABS: CREATININE 1.7 mg/dL (0.6-1.3)
[2025-03-22] MEDS: OXYCODONE HCL/ACETAMINOPHEN 5/325MG TABLET PO ONE (20:00)
[2025-03-22 21:20] VITALS: BP 146/88; PULSE 82; RESP 16; O2SAT 100
== END 2025-03-22 23:02 | disposition left against medical advice (07) ==
LOC: ER 17:56 → EDBEDREQTM 20:04 → EDBEDREQ 20:04 → ER 23:02
DX: S09.90XA Unspecified injury of head, initial encounter (principal); R09.02 Hypoxemia; R07.89 Other chest pain; R55 Syncope and collapse; M54.50 Low back pain, unspecified; J44.9 Chronic obstructive pulmonary disease, unspecified; F12.90 Cannabis use, unspecified, uncomplicated; I11.0 Hypertensive heart disease with heart failure; I50.9 Heart failure, unspecified; Z79.899 Other long term (current) drug therapy; W19.XXXA Unspecified fall, initial encounter; Y93.89 Activity, other specified; Y92.89 Other specified places as the place of occurrence of the external cause; Y99.8 Other external cause status
CPT/HCPCS: 80048; 83880; 83735; 85025; 85610; 85730; 84484; 36415; 71045; 73060; 70450; 72125; 72131; 93005; 99291; Z7610